=== PATIENT | male | born 1950 | race Caucasian/White ===

== ENCOUNTER 2019-01-29 16:12 | Observation (INO) | payer BC, MEDICARE ==
[~2019-01-29] VITALS: Ht 177.8 cm; Wt 99.8 kg
[2019-01-29] MEDS ORDERED: COZAAR50 MG PO (16:19)
[2019-01-29] MEDS ORDERED: LOSARTAN-HCTZ1 EACH PO (16:20)
--- NOTE | 2019-01-29 20:15 | NUR ---
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 CURRENT HR 90'S, THEN PT INTO BR TO VOID AND HR UP TO 115 AND BACK DOWN TO 85 WHEN BACK TO SIT IN CHAIR. DENIES DIZZINESS/LIGHTHEADEDNESS, PAIN OR SOB. PLAN OF CARE EXPLAINED TO PT, PT HAS NO QUESTIONS. CALL LIGHT IN HAND. 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
--- NOTE | 2019-01-29 21:56 | NUR ---
PT ATE HIS SANDWICH BOX, SITTING UP IN [place] WATCHING TV WITH NO COMPLAINTS. MEDS GIVEN. CALL LIGHT IN HAND.
--- NOTE | 2019-01-30 00:08 | NUR ---
PT REMAINS UP IN RECLINER WATCHING TV, STATES HE WOULD LIKE TO SLEEP IN CHAIR. ASSESSMENT UNCHANGED FROM PREVIUS, RESTING HR 80'S SINUS RHYTHM. CALL LIGHTIN HAND.
--- NOTE | 2019-01-30 01:00 | NUR ---
PT INTO BED TO SLEEP. HR 70'S NSR.
--- NOTE | 2019-01-30 02:03 | NUR ---
PT RESTING WITH EYES CLOSED, RESP EVEN UNLABORED.
--- NOTE | 2019-01-30 06:00 | NUR ---
PT UP IN RECLINER WATCHING TV. HR 60'S.
--- NOTE | 2019-01-30 09:21 | NUR ---
PT UP IN THE CHAIR, HAS AMBULATED TO THE BATHROOM AND BACK TO THE CHAIR, DOES NOT WANT TO EAT BKF AT THIS TIME, BUT DID GIVEN HIM COFFEE. PT DENIES CHEST PAIN, OR THE FEELING OF HIS HEART RUNNING.
--- NOTE | 2019-01-30 09:50 | NUR ---
SPOKE WITH PATIENT IN ROOM. PATIENT UP IN ROOM, SEMI-DRESSED. PATIENT LIVES ALONE, HAS NO ISSUES WITH AMBULATION. IS RETIRED, BUT WORKS PART-TIME. HE DRIVES. PATIENT HAS FAMILY OUT OF TOWN, HAS FRIENDS IN AREA. HE KNOWS OF NO BARRIERS TO GO HOME SAFELY. DISCUSSED HE WILL NEED TO F/U WITH PCP. DISCUSSED UNDERSTANDING TESTS, DIAGNOSIS, MEDICATIONS AND THEIR SIDE EFFECTS. HE UNDERSTANDS WHO TO CALL OR TO COME TO ED IF HE HAS QUESTIONS OR PROBLEMS AFTER DICHARGE. QUESTIONS ANSWERED. WILL FOLLOW NEEDED.
[2019-01-30] MEDS ORDERED: ASPIRIN EC325 MG PO (09:53)
[2019-01-30] MEDS ORDERED: METOPROLOL SUCC50 MG PO (09:54)
--- NOTE | 2019-01-30 10:00 | NUR ---
PT RECEIVING HIS ECHO AT THIS TIME AND THEN WILL BE DC'D TO HOME.
--- NOTE | 2019-01-30 10:39 | NUR ---
EHOC COMPLETED AND FLU INJECTION GIVEN AT THIS TIME.
--- NOTE | 2019-01-30 11:55 | NUR ---
PT DISCHARGE TO HOME AT THIS TIME. PT AMBULATED TO THE FRONT AND DROVE HIMSELF HOME DUE TO HE IS SINGLE AND DROVE HIMSELF HERE.
--- NOTE | 2019-01-30 19:12 | EKG ---
[facility] [address] [facility] [place] [address] Signed Atrial fibrillation with rapid ventricular response Left axis deviation Abnormal ECG No previous ECGs available Confirmed by MARIA TERESA BURGOS MD ([id number]) on 01/30/2019 7:12:07 PM Electronically Signed By: MARIA TERESA BURGOS MD 01/30/191911 PATIENT NAME: OZIEL RODRIGUEZRONY LUNSFORD Electrocardiogram DATE OF : 48 PHYSICIAN: MARIA TERESA BURGOS MD REPORT #: [id number] REPORT IS CONFIDENTIAL AND NOT TO BE RELEASED WITHOUT AUTHORIZATION
== END 2019-01-30 10:55 | disposition home or self-care (01) ==
LOC: ED 16:12 → CCU 16:13
PROVIDERS: ADMIT Internal Medicine
DX: I48.0 Paroxysmal atrial fibrillation (principal); I10 Essential (primary) hypertension; E02 Subclinical iodine-deficiency hypothyroidism; Z79.899 Other long term (current) drug therapy; Z87.891 Personal history of nicotine dependence; Z23 Encounter for immunization
CPT/HCPCS: 36415; 71045; 71260; 80053; 83735; 84439; 84443; 84484; 85025; 85379; 90662; 93005; 93010; 93306; 96374; 99285-25; G0008; G0378; J3475; Q9967

== ENCOUNTER 2019-06-09 01:22 | Emergency (ER) | payer BC, MEDICARE ==
[~2019-06-09] VITALS: Ht 177.8 cm; Wt 99.8 kg
[~2019-06-09 01:22] MED LIST: ASPIRIN EC325 MG PO; COZAAR50 MG PO; LOSARTAN-HCTZ1 EACH PO; METOPROLOL SUCC50 MG PO
== END 2019-06-09 03:08 | disposition home or self-care (01) ==
LOC: ED 01:22
DX: I10 Essential (primary) hypertension (principal); Z79.899 Other long term (current) drug therapy; Z79.82 Long term (current) use of aspirin
CPT/HCPCS: 80048; 99283

== ENCOUNTER 2020-02-18 09:18 | Emergency (ER) | payer BC, MEDICARE ==
[~2020-02-18] VITALS: Ht 177.8 cm; Wt 108.9 kg
--- NOTE | 2020-02-18 15:50 | EKG ---
[facility] [address] [place] [address] Signed Normal sinus rhythm Normal ECG When compared with ECG of 29-JAN-2019 16:20, Sinus rhythm has replaced Atrial fibrillation Vent. rate has decreased BY 41 BPM Confirmed by RUBEN SCHROEDER MD ([id number]) on 02/18/2020 3:50:03 PM Electronically Signed By: RUBEN SCHROEDER MD 02/18/20 1550 PATIENT NAME: NABIL RODRIGUEZ Electrocardiogram DATE OF : 48 PHYSICIAN: RUBEN SCHROEDER MD REPORT #: [id number] REPORT IS CONFIDENTIAL AND NOT TO BE RELEASED WITHOUT AUTHORIZATION
== END 2020-02-18 12:28 | disposition home or self-care (01) ==
LOC: ED 09:18
DX: J06.9 Acute upper respiratory infection, unspecified (principal); R19.7 Diarrhea, unspecified; I10 Essential (primary) hypertension; Z87.891 Personal history of nicotine dependence; Z79.899 Other long term (current) drug therapy; Z79.82 Long term (current) use of aspirin
CPT/HCPCS: 71045; 80053; 81001; 84484; 85025; 94640; 94664; 99285-25

== ENCOUNTER 2020-03-01 00:23 | Emergency (ER) | payer BC, MEDICARE ==
[~2020-03-01] VITALS: Ht 177.8 cm; Wt 108.9 kg
--- OUTSIDE RECORDS SUMMARY | 2020-03-01 00:26 | XMS ---
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 Joseph has no Care Guidelines for this patient. Clarisa VISIT COUNT (12 MO.) 3 [facility] TOTAL 3 NOTE: Visits indicate total known visits. 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
== END 2020-03-01 02:27 | disposition home or self-care (01) ==
LOC: ED 00:23
DX: K59.00 Constipation, unspecified (principal); I10 Essential (primary) hypertension; I48.91 Unspecified atrial fibrillation; Z87.891 Personal history of nicotine dependence; Z79.899 Other long term (current) drug therapy; Z79.82 Long term (current) use of aspirin
CPT/HCPCS: 74018; 99283-25

== ENCOUNTER 2022-07-17 17:46 | Emergency (ER) | payer BC, MEDICARE ==
[~2022-07-17] VITALS: Ht 177.8 cm; Wt 107.5 kg
[2022-07-17] MEDS ORDERED: BETAXOLOL HCL10 MG PO (18:03)
--- NOTE | 2022-07-19 14:02 | EKG ---
[facility] [address] [place] [address] Signed Sinus rhythm with 1st degree AV block with premature atrial complexes Moderate voltage criteria for LVH, may be normal variant ( R in aVL , Flaco product ) Borderline ECG When compared with ECG of 18-FEB-2020 11:59, premature atrial complexes are now present VT interval has increased Confirmed by MARIA TERESA BURGOS MD ([id number]) on 07/19/2022 2:02:06 PM Electronically Signed By: MARIA TERESA BURGOS MD 07/19/22 1402 PATIENT NAME: NABIL RODRIGUEZ Electrocardiogram DATE OF : 48 PHYSICIAN: MARIA TERESA BURGOS MD REPORT #: [id number] REPORT IS CONFIDENTIAL AND NOT TO BE RELEASED WITHOUT AUTHORIZATION
== END 2022-07-17 19:16 | disposition home or self-care (01) ==
LOC: ED 17:46
DX: I10 Essential (primary) hypertension (principal); I48.91 Unspecified atrial fibrillation; Z87.891 Personal history of nicotine dependence; Z79.82 Long term (current) use of aspirin; Z79.899 Other long term (current) drug therapy
CPT/HCPCS: 81001; 93005; 93010; 99283-25

== ENCOUNTER 2022-08-16 04:35 | Emergency (ER) | payer OTHER, MEDICARE, BC ==
[~2022-08-16] VITALS: Ht 177.8 cm; Wt 103.0 kg
[~2022-08-16 04:35] MED LIST changes: +BETAXOLOL HCL10 MG PO
--- OUTSIDE RECORDS SUMMARY | 2022-08-16 04:37 | XMS ---
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 E.Jose VISIT COUNT (12 MO.) 2 [facility] TOTAL 2 NOTE: Visits indicate total known visits. 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
[2022-08-16 11:46] VITALS: BP 158/102
--- NOTE | 2022-08-17 16:26 | EKG ---
[facility] [address] [place] [address] Signed Sinus rhythm with 1st degree AV block Left axis deviation Moderate voltage criteria for LVH, may be normal variant ( R in aVL , Flaco product ) Abnormal ECG When compared with ECG of 17-JUL-2022 18:25, premature atrial complexes are no longer present Confirmed by MARIA TERESA BURGOS MD ([id number]) on 08/17/2022 4:26:31 PM Electronically Signed By: MARIA TERESA BURGOS MD 08/17/22 1626 PATIENT NAME: NABIL RODRIGUEZ Electrocardiogram DATE OF : 48 PHYSICIAN: MARIA TERESA BURGOS MD REPORT #: [id number] REPORT IS CONFIDENTIAL AND NOT TO BE RELEASED WITHOUT AUTHORIZATION
--- NOTE | 2022-08-17 16:27 | EKG ---
[facility] [address] [place] [address] Signed Sinus rhythm with 1st degree AV block Left axis deviation Moderate voltage criteria for LVH, may be normal variant ( R in aVL , Flaco product ) Abnormal ECG When compared with ECG of 16-AUG-2022 04:44, (Unconfirmed) No significant change was found Confirmed by MARIA TERESA BURGOS MD ([id number]) on 08/17/2022 4:26:59 PM Electronically Signed By: MARIA TERESA BURGOS MD 08/17/22 1627 PATIENT NAME: NABIL RODRIGUEZ Electrocardiogram DATE OF : 48 PHYSICIAN: MARIA TERESA BURGOS MD REPORT #: [id number] REPORT IS CONFIDENTIAL AND NOT TO BE RELEASED WITHOUT AUTHORIZATION
== END 2022-08-16 11:50 | disposition short-term general hospital (02) ==
LOC: ED 04:35
DX: I20.0 Unstable angina (principal); I10 Essential (primary) hypertension; I48.0 Paroxysmal atrial fibrillation; Z20.822 Contact with and (suspected) exposure to COVID-19; Z87.891 Personal history of nicotine dependence; Z79.899 Other long term (current) drug therapy
CPT/HCPCS: 36415; 71045; 80053; 81001; 83880; 84439; 84443; 84481; 84484; 85025; 93005; 93010; A9270; U0003

== ENCOUNTER 2024-10-17 17:11 | Emergency (ER) | payer MEDICARE ==
[~2024-10-17] VITALS: Ht 177.8 cm; Wt 88.0 kg
[2024-10-17] MEDS ORDERED: LOSARTAN POTAS100 MG PO (17:28)
[2024-10-17] MEDS ORDERED: SODIUM CHLORIDE 0.9% 500 ML IV ONE (19:00)
[2024-10-17 19:38] LABS: BASOPHILS 0.4 % (0.2-1.2); EOSINOPHILS 1.5 % (0.8-7.0); LYMPHOCYTES 9.6 % (21.8-53.1); MCH 29.6 PG (25.7-32.2); MCHC 33.4 g/dL (32.3-36.5); MCV 88.6 fL (79.0-92.2); MONOCYTES 7.3 % (5.3-12.2); NEUTROPHILS 80.8 % (34.0-67.9); RBC 4.56 M/uL (4.63-6.08)
[2024-10-17] MEDS ORDERED: HYDROmorphone HCL 1 MG/ML SYR IV ONE (19:45)
[2024-10-17 19:55] LABS: ALT (SGPT) 24.0 U/L (14-59); AST (SGOT) 20.0 U/L (15-37); GLOMERULAR FILTRATION RATE,EST 47.0 mL/min (>60); PROTEIN, TOTAL 8.2 g/dL (6.4-8.2); UREA NITROGEN 18.0 mg/dL (7-18)
[2024-10-17] MEDS ORDERED: LABETALOL HCL 20 MG/4 ML VIAL IV ONE (21:15)
[2024-10-17] MEDS ORDERED: ESMOLOL HCL 250 ML IV SCH (22:00)
[2024-10-17] MEDS ORDERED: HYDROmorphone HCL 1 MG/ML SYR IV PRN (23:30)
[2024-10-18 00:14] VITALS: BP 138/69
== END 2024-10-18 00:31 | disposition short-term general hospital (02) ==
LOC: ED 17:11
PROVIDERS: Emergency Medicine
DX: I71.40 Abdominal aortic aneurysm, without rupture, unspecified (principal); I10 Essential (primary) hypertension; Z87.891 Personal history of nicotine dependence
CPT/HCPCS: 36415; 71275; 72192; 74174; 80053; 85025; 99285-25; J1171; J7040; Q9967